=== PATIENT | male | born 1965 | race Caucasian/White ===

== ENCOUNTER → 2019-01-22 08:46 | Outpatient (CLI) | payer BC, SELFPAY ==
--- NOTE | 2019-01-22 08:49 | MR_ITS ---
MR lumbar spine wo con, MR 3-d myelogram/MRCP HISTORY: PT states low back pain X 1-2 weeks. RT leg pain, numbness and tingling. ITS.REASON: LUMBAR DISC HERNIATION ORDERING PHYSICIAN: Romero Hairston MD PATIENT AGE: 53 years Comparison: CT 01/13/19. TECHNIQUE: Standard multiplanar multiecho sequences are performed without contrast. 3-D MIP and myelographic images are also rendered and reviewed FINDINGS: The spinal cord ends at the L1 level. There is normal alignment. T11-T12 and T12-L1 are unremarkable. L1-L2: Minimal bulging disc with mild degenerative disc disease. L2-L3: Mild concentric bulging disc with mild disc desiccation. Mild left-sided foraminal narrowing. L3-L4: Mild concentric bulging disc. L4-5: Concentric bulging disc is present along with a right paracentral disc herniation with superior extrusion which is impinging upon the exiting L4 nerve root on the right. The extruded portion of the disc measures approximately 13 mm.. This is also causing moderate right lateral recess narrowing abutting the anteromedial aspect of the right L4 nerve root. L5-S1: Degenerative disc disease with concentric bulging disc with an annular fissure along with mild facet hypertrophic change. IMPRESSION: 1. Mild multilevel lumbar spondylosis with degenerative changes as described above. 2. Concentric bulging disc at L4-L5 is present along with a right paracentral disc herniation with superior extrusion which is impinging upon the exiting L4 nerve root on the right. The extruded portion of the disc measures approximately 13 mm.. This is also causing moderate right lateral recess narrowing abutting the anteromedial aspect of the right L4 nerve root. 3. Degenerative disc disease at L5-S1 with concentric bulging disc with an annular fissure along with mild facet hypertrophic change IMPRESSION:
== END ==
PROVIDERS: PCP Family Medicine; Visit Provider Family Medicine
DX: M51.26 Other intervertebral disc displacement, lumbar region (principal)
CPT/HCPCS: 72148; 76376

== ENCOUNTER → 2022-06-12 15:46 | Outpatient (CLI) | payer BC, SELFPAY | PROVIDERS: PCP Family Medicine; Visit Provider Family Medicine | DX: U07.1 COVID-19 (principal) | CPT/HCPCS: C9803; U0003; U0005 ==

== ENCOUNTER 2023-06-28 11:42 | Emergency (ER) | payer OTHER, BC, SELFPAY ==
[2023-06-28 11:44] VITALS: BP 127/73; PULSE 57; RESP 17; TEMP 36.7; O2SAT 98; BMI 23.7
--- NOTE | 2023-06-28 13:00 | XR_ITS ---
FINAL REPORT CLINICAL HISTORY: Left knee pain after forklift accident COMPARISON: None FINDINGS: LEFT KNEE 3 views of the left knee were obtained. There is no acute fracture or dislocation. There is sharpening of the tibial spines consistent with mild osteoarthritis. Visualized joint spaces are normally aligned. Soft tissues are unremarkable. IMPRESSION: No acute bony abnormality. Reviewed, Interpreted and Dictated by Houston Chavez MD Transcribed by Jessica Contreras Authenticated and [facility]
--- NOTE | 2023-06-28 13:00 | CT_ITS ---
FINAL REPORT TECHNIQUE: Axial images were obtained of the lumbar spine by computed tomography. Coronal and sagittal reconstruction process performed. This study was performed with techniques to keep radiation doses as low as reasonably achievable (ALARA). Individualized dose reduction techniques using automated exposure control or adjustment of mA and/or kV according to the patient''s size were employed. CLINICAL HISTORY: midline pain after forklift accident FINDINGS: There is a 30% compression deformity involving the inferior endplate of L5. The remaining lumbar vertebra are of normal height. There is no malalignment. L1-2: No significant disc bulge or protrusion. L2-3: Mild diffuse disc bulge is present with mild bilateral neural foraminal narrowing. L3-4: Mild diffuse disc bulge is present with mild bilateral neural foraminal narrowing. L4-5: Moderate diffuse disc bulge is present. There is bilateral facet hypertrophy with moderate bilateral neural foraminal narrowing. L5-S1: Mild diffuse disc bulge is present with mild bilateral neural foraminal narrowing. IMPRESSION: Compression deformity of L5. MRI could better evaluate for marrow edema. Reviewed, Interpreted and Dictated by Houston Chavez MD Transcribed by Minnie Champagne Authenticated and [facility]
--- NOTE | 2023-06-28 13:00 | CT_ITS ---
FINAL REPORT TECHNIQUE: Axial images were obtained of the thoracic spine by computed tomography. Coronal and sagittal reconstruction process performed. This study was performed with techniques to keep radiation doses as low as reasonably achievable (ALARA). Individualized dose reduction techniques using automated exposure control or adjustment of mA and/or kV according to the patient's size were employed. CLINICAL HISTORY: midline pain after forklift accident FINDINGS: There is 90% compression deformity of the T12 vertebra anteriorly. There is fragmentation and sclerosis. There is accentuation of the thoracic kyphosis. There is a 50% compression deformity of T8 with indentation of the superior endplate. There is mild retropulsion this inferior endplate of T12 with mild spinal canal compromise. IMPRESSION: Compression deformities of T8 and T12, favor chronic but MRI could better assess for marrow edema. Reviewed, Interpreted and Dictated by Houston Chavez MD Transcribed by Minnie Champagne Authenticated and [facility]
--- NOTE | 2023-06-28 13:00 | XR_ITS ---
FINAL REPORT CLINICAL HISTORY: Left lat mal pain after forklift accident COMPARISON: None FINDINGS: Two views of the left tibia/fibula were obtained. There is no acute fracture or dislocation. The joint spaces are intact. There is no soft tissue abnormality. IMPRESSION: No acute fracture Reviewed, Interpreted and Dictated by Houston Chavez MD Transcribed by Jessica Contreras Authenticated and . [facility]
--- NOTE | 2023-06-28 13:00 | XR_ITS ---
FINAL REPORT CLINICAL HISTORY: Left lat mal pain after forklift accident COMPARISON: None FINDINGS: LEFT ANKLE Three views demonstrate no acute fracture or dislocation. The visualized joint spaces are normally aligned. There is mild soft tissue swelling over the lateral malleolus. IMPRESSION: Mild soft tissue swelling without acute bony abnormality. Reviewed, Interpreted and Dictated by Houston Chavez MD Transcribed by Jessica Contreras Authenticated and [facility]
--- NOTE | 2023-06-28 13:00 | CT_ITS ---
FINAL REPORT TECHNIQUE: Axial images through the pelvis were performed by computed tomography. Sagittal and coronal reformatted images were obtained and reviewed. This study was performed with techniques to keep radiation doses as low as reasonably achievable (ALARA). Individualized dose reduction techniques using automated exposure control or adjustment of mA and/or kV according to the patient's size were employed. CLINICAL HISTORY: left hip pain after forklift accident FINDINGS: No fracture is identified. The hip joint spaces are well preserved. The femoral heads demonstrate a normal smooth contour. IMPRESSION: No acute process. Reviewed, Interpreted and Dictated by Houston Chavez MD Transcribed by Minnie Champagne Authenticated and [facility]
[2023-06-28 13:01] VITALS: BP 124/91; PULSE 58; O2SAT 98
--- NOTE | 2023-06-28 13:41 | PC.NURSE ---
Pt going to CT
--- NOTE | 2023-06-28 13:47 | HMH.EDGENADL ---
Discharge Plan Disposition Patient Disposition: Home, Self-Care Prescriptions Prescriptions: New methocarbamol 750 mg tablet 1,500 mg PO TID 5 Days Qty: 30 0RF lidocaine 5 % adhesive patch,medicated 1 patch topical DAILY Qty: 15 0RF Rx Instructions: leave on most painful area for up to 12 hrs Referrals Follow up/Referrals: Provider,Referral, MD [Primary Care Provider] - See instructions Alec Weldon, PT [Physical Therapist] - See instructions (L5 compression fx 06/27, disc herniation, back pain) Activity Restrictions/Add. Instructions Additional Instructions/Restrictions: Call your family doctor to establish care for this visit to the emergency department and schedule follow-up within 48 hours to ensure improvement. If you have any worsening of your condition or any other concerning signs or symptoms, return to the emergency department or your primary care doctor for further evaluation. Clinical Impressions Clinical Impression: Back pain, Left leg pain Stand Alone Forms Stand Alone Forms: Work/School Release Instructions Patient Instructions: DI for Low Back Pain Discharge ED Provider: Migel Brewer General Adult HPI General Chief complaint: Back Pain/Injury Stated complaint: [id number] left ankle,back and elbow Time Seen by Provider: 06/28/23 12:29 Mode of Arrival: Wheelchair Source of Information: Patient Limitations: No Limitations Description of Symptoms (Recalled from ER Triage Doc. by RN): Pt c/o left flank and upper abd pain since yesterday after he had an accident at work. Pt reports he was bent over to fix something when a metal cart (approx 300-400 lbs) came loose and knocked him down & ran over his side. No redness or bruising noted to skin, pt does have tenderness. History of Present Illness HPI narrative: 57-year-old male with no relevant medical history presenting with left lower extremity back pain. Patient states that he was hit by a forklift the day prior to arrival. Hit in the left flank/mid to lower back and having left lower extremity pain. No outward signs of injury. Patient able to tolerate bearing weight, but with difficulty secondary to pain in his lateral left leg. Has mild intensity, does not radiate, bothersome, but not debilitating. Also having lower back pain that does not radiate and no bowel or bladder symptoms, no lower extremity weakness, or saddle anesthesia. Related Data Previous Rx's Medication Instructions Recorded lidocaine 5 % topical patch 1 patch topical DAILY #15 ea 06/29/23 methocarbamol 750 mg tablet 1,500 mg PO TID 5 days #30 tabs 06/29/23 Allergies Allergy/AdvReac Type Severity Reaction Status Date / Time No Known Allergies Allergy Verified 01/13/19 15:29 [facility] Disclaimer: The information contained in this section may have been updated after the patient was seen, as this information can be updated by other users. Social History Smoking Status: Current every day smoker alcohol intake: never current occupational status: other Travel in the last 8 weeks: None ROS Obtained: Yes All systems reviewed & no additional complaints except as documented Physical Exam General General appearance: alert, in no apparent distress and other ( ) Head Head exam: atraumatic and normocephalic Eye Eye exam: Present normal appearance, PERRL and EOMI ENT ENT exam: Present mucous membranes moist Neck Neck exam: Present normal inspection, full ROM and trachea midline Respiratory Respiratory exam: Absent respiratory distress, wheezes, stridor, accessory muscle use or prolonged expiratory phase Cardiovascular Cardiovascular exam: Present regular rate and normal rhythm Abdominal Exam Abdominal exam: Present soft; Absent distention, tenderness, guarding, rebound, rigidity or normal bowel sounds Extremities Exam Extremities exam: Present tenderness; Absent edema Neurological Exam Neurological exam: Present alert, oriented X3, C
[2023-06-28 14:30] VITALS: BP 113/65; PULSE 53; O2SAT 98
--- NOTE | 2023-06-28 15:09 | PC.NURSE ---
called radiology to obtain prelims on flims as pt is needing to leave
[2023-06-28 16:08] VITALS: BP 113/65; PULSE 53; RESP 18; TEMP 36.7; O2SAT 98
== END 2023-06-28 16:08 | disposition home or self-care (01) ==
PROVIDERS: Emergency Provider Emergency Medicine
DX: R10.10 Upper abdominal pain, unspecified (principal); M54.6 Pain in thoracic spine; M54.50 Low back pain, unspecified; M79.605 Pain in left leg; F17.200 Nicotine dependence, unspecified, uncomplicated; V83.7XXA Person on outside of special industrial vehicle injured in nontraffic accident, initial encounter; Y99.0 Civilian activity done for income or pay
CPT/HCPCS: 72128; 72131; 72192; 73562; 73590; 73610; 99285

== ENCOUNTER → 2023-07-30 13:40 | Outpatient (CLI) | payer OTHER, BC, SELFPAY ==
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
--- NOTE | 2023-07-30 13:40 | MR_ITS ---
FINAL REPORT CLINICAL HISTORY: Work injury june 27, lower back pain COMPARISON: None FINDINGS: Multiplanar MR imaging of the lumbar spine was performed without contrast. On the sagittal T2-weighted images, disc degeneration is seen throughout. There is mild retrolisthesis of L1 on L2, L2 on L3, and L3 on L4. There is no evidence of fracture. No bony mass is identified. The conus has an unremarkable appearance. L1-2: An annular bulge is present with osteophytes and facet osteoarthropathy. There is mild left neural foraminal narrowing. L2-3: An annular bulge is present with osteophytes. There is a left foraminal disc protrusion, with mild right and moderate left neural foraminal narrowing L3-4: An annular bulge is present with osteophytes. There is mild left neural foraminal narrowing at this level. L4-5: An annular bulge is present with osteophytes. There is mild bilateral neural foraminal narrowing at this level. L5-S1: An annular bulge is present with osteophytes. There is a posterior midline annular tear, and mild bilateral neural foraminal narrowing. IMPRESSION: Multilevel degenerative disc disease and spondylosis as described. Reviewed, Interpreted and Dictated by Michi Saucedo III, MD Transcribed by Pat Horner Authenticated and [facility]
== END ==
PROVIDERS: Visit Provider Family Medicine
DX: M51.16 Intervertebral disc disorders with radiculopathy, lumbar region (principal); M54.9 Dorsalgia, unspecified; M79.605 Pain in left leg; Y99.0 Civilian activity done for income or pay
CPT/HCPCS: 72146; 72148; 76376

== ENCOUNTER 2024-01-17 11:00 | Outpatient (RCR) | payer BC, SELFPAY | END 2024-01-17 12:10 | disposition home or self-care (01) | LOC: PT 11:00 | PROVIDERS: PCP Family Medicine; Visit Provider Nurse Practitioner Acute Care | DX: M51.24 Other intervertebral disc displacement, thoracic region (principal) | CPT/HCPCS: 97010; 97014; 97035; 97110; 97140; 97163; 97164; 97530; G0283 ==